=== PATIENT | female | born 1990 | race Caucasian/White ===

== ENCOUNTER 2018-12-07 15:01 | Emergency (ER) | payer MEDICAID ==
[~2018-12-07] VITALS: Ht 162.6 cm; Wt 83.0 kg
--- NOTE | 2018-12-07 15:21 | NUR ---
DR MUSA SEEN AND EXAMINED THE PT.
--- NOTE | 2018-12-07 15:31 | NUR ---
Patient discharged to home in stable conditon. Written and verbal after care instructions given. Patient verbalizes understanding of instructions.
[2018-12-07 15:36] VITALS: BP 103/76
== END 2018-12-07 15:36 | disposition home or self-care (01) ==
LOC: ER 15:01
DX: S39.012A Strain of muscle, fascia and tendon of lower back, initial encounter (principal); N39.0 Urinary tract infection, site not specified; X58.XXXA Exposure to other specified factors, initial encounter; Y93.89 Activity, other specified; Y92.89 Other specified places as the place of occurrence of the external cause; Y99.8 Other external cause status
CPT/HCPCS: 87086; A4663

== ENCOUNTER 2019-06-21 00:44 | Emergency (ER) | payer MEDICAID ==
[~2019-06-21] VITALS: Ht 165.1 cm; Wt 79.4 kg
--- NOTE | 2019-06-21 01:00 | NUR ---
Dr. Harden at bedside for MSE
[2019-06-21] MEDS ORDERED: IBUPROFEN 800 MG TABLET PO ONE (02:15)
[2019-06-21] MEDS ORDERED: IBUPROFEN 800 MG TABLET ONE (02:16)
--- NOTE | 2019-06-21 02:39 | NUR ---
Patient discharged to home in stable conditon. Written and verbal after care instructions given. Patient verbalizes understanding of instructions. Patient ambulating with steady gait
[2019-06-21 02:41] VITALS: BP 112/73
== END 2019-06-21 02:39 | disposition home or self-care (01) ==
LOC: ER 00:47
DX: J18.9 Pneumonia, unspecified organism (principal); R11.10 Vomiting, unspecified
CPT/HCPCS: 71046; 93005; A4663

== ENCOUNTER 2022-07-12 10:48 | Emergency (ER) | payer MEDICAID ==
[~2022-07-12] VITALS: Ht 162.6 cm; Wt 74.8 kg
--- NOTE | 2022-07-12 11:14 | NUR ---
Urine specimen collected and brought to lab.
[2022-07-12 11:17] LABS: *BILIRUBIN,URIN NEGATIVE (NEGATIVE); *BLOOD, URINE 2+ (NEGATIVE); *CLARITY,URINE CLEAR (CLEAR); *COLOR,URINE YELLOW (YELLOW); *KETONES,URINE NEGATIVE (NEGATIVE); *UROBILINOGEN,URINE 0.2 E.U./dl (NORMAL); LEUKOCYTE ESTERASE ,URINE NEGATIVE (NEGATIVE); NITRITE, URINE NEGATIVE (NEGATIVE); PH,URINE 5.5 (5.0-8.0); UGLUCOSE NEGATIVE (NEGATIVE)
[2022-07-12 11:18] LABS: *URINE HCG, QUAL NEG (NEGATIVE)
--- NOTE | 2022-07-12 11:53 | NUR ---
Patient is resting comfortably on gurney while using her personal electronic device, NAD.
--- NOTE | 2022-07-12 12:09 | NUR ---
Patient wants to go home, MD notified.
--- NOTE | 2022-07-12 12:10 | NUR ---
Patient discharged to home in stable condition with brisk steady gait. Written and verbal after care instructions given to patient and partner. Patient verbalized understanding and compliance of instructions. Stressed follow up with primary doctor and applications administrator or return to ER for worsening s/s.
--- NOTE | 2022-07-12 12:11 | NUR ---
Vincent lee in [facility] - 07/12/22 at 1221 by SOWMYA Patient wants to go home, notified.
[2022-07-12 13:30] LABS: BACTERIA,URINE NONE SEEN /HPF (NONE SEEN); WBC,URINE 0-3 /HPF (0-3)
[2022-07-12 13:31] LABS: SQUAMOUS EPITHELIAL CELL,UR NONE SEEN /HPF (NONE SEEN)
== END 2022-07-12 12:11 | disposition home or self-care (01) ==
LOC: ER 10:56
DX: M54.50 Low back pain, unspecified (principal)
CPT/HCPCS: 84703; A4663